=== PATIENT | female | born 1945 | race Caucasian/White ===

== ENCOUNTER → 2023-06-06 07:48 | Outpatient (REF) | payer MEDICARE, OTHER, SELFPAY ==
[2023-06-06 09:14] LABS: % Basophils 1.5 % (0-2); % Immature Granulocytes 0.2 % (0-0.5); % Lymphocytes 19.6 % (20.5-51.1); % Monocytes 7.8 % (1.7-9.3); % Neutrophils 68.9 % (42.2-75.2); Absolute Basophils 0.1 10^3/uL (0-0.2); Absolute Eosinophils 0.1 10^3/uL (0-0.7); Absolute Lymphocytes 0.9 10^3/uL (1.2-3.4); Absolute Monocytes 0.4 10^3/uL (0.1-0.6); Absolute Neutrophils 3.2 10^3/uL (1.4-6.5); Hematocrit 42.9 % (37.0-47.0); Hemoglobin 14.4 g/dL (12.0-16.0); Mean Corp Hgb Conc. 33.6 g/dL (33.0-37.0); Mean Corpuscular Hgb 31.2 pg (27.0-31.0); Mean Corpuscular Volume 93.1 fL (81.0-99.0); Mean Platelet Volume 10.4 fL (7.4-10.4); Nucleated Red Blood Cells % 0 %; Platelet Count 327 10^3/uL (130-400); Red Blood Cell Count 4.61 10^6/uL (4.20-5.40); Red Cell Dist. Width 12.6 % (11.5-14.5); White Blood Cell Count 4.6 10^3/uL (4.8-10.8)
[2023-06-06 09:43] LABS: ALT (SGPT) 20 U/L (0-35); AST (SGOT) 31 U/L (14-36); Albumin 4.5 g/dl (3.5-5.0); Alkaline Phosphatase 69 U/L (38-126); Blood Urea Nitrogen 24 mg/dl (7-17); Calcium 9.9 mg/dl (8.4-10.2); Carbon Dioxide 33 mmol/L (22-30); Chloride 97 mmol/L (98-107); Glucose 79 mg/dl (70-99); HDL Cholesterol 93 mg/dl; LDL Cholesterol, Calculated 72 mg/dl; Phosphorus 3.9 mg/dl (2.5-4.5); Sodium 138 mmol/L (135-145); Total Bilirubin 0.5 mg/dl (0.2-1.3); Total Cholesterol 182 mg/dl (50-199); Triglyceride 88 mg/dl (10-149); Very Low Density Lipoprotein 17 mg/dl (0-30); eGFR > 60.00
== END ==
LOC: REG 07:48
PROVIDERS: ATTENDING PHYSICIAN Family Medicine
DX: I10 Essential (primary) hypertension (principal); R74.01 Elevation of levels of liver transaminase levels; I70.0 Atherosclerosis of aorta; K59.09 Other constipation
CPT/HCPCS: 36415; 80053; 80061; 82248; 84100; 85025

== ENCOUNTER → 2023-06-27 13:19 | Outpatient (REF) | payer MEDICARE, OTHER, SELFPAY | LOC: HWRAD 13:19 | PROVIDERS: ATTENDING PHYSICIAN Family Medicine; REFERRING PHYSICIAN Internal Medicine Rheumatology | DX: M85.80 Other specified disorders of bone density and structure, unspecified site (principal); Z12.31 Encounter for screening mammogram for malignant neoplasm of breast; M81.0 Age-related osteoporosis without current pathological fracture | CPT/HCPCS: 77063; 77067; 77080 ==

== ENCOUNTER → 2023-08-12 16:07 | Outpatient (REF) | payer MEDICARE, OTHER, SELFPAY | LOC: PAVMRI 16:07 | PROVIDERS: ATTENDING PHYSICIAN Internal Medicine Rheumatology; FAMILY PHYSICIAN Family Medicine | DX: M25.511 Pain in right shoulder (principal) | CPT/HCPCS: 73221 ==

== ENCOUNTER → 2023-10-07 10:55 | Outpatient (REF) | payer MEDICARE, OTHER, SELFPAY ==
[2023-10-07 12:16] LABS: % Eosinophils 1.4 % (0-6); % Immature Granulocytes 0.2 % (0-0.5); % Lymphocytes 24.6 % (20.5-51.1); % Monocytes 8.4 % (1.7-9.3); % Neutrophils 64.4 % (42.2-75.2); Absolute Basophils 0.1 10^3/uL (0-0.2); Absolute Eosinophils 0.1 10^3/uL (0-0.7); Absolute Lymphocytes 1.2 10^3/uL (1.2-3.4); Absolute Monocytes 0.4 10^3/uL (0.1-0.6); Absolute Neutrophils 3.2 10^3/uL (1.4-6.5); Hematocrit 40.6 % (37.0-47.0); Hemoglobin 13.9 g/dL (12.0-16.0); Mean Corp Hgb Conc. 34.2 g/dL (33.0-37.0); Mean Corpuscular Hgb 30.8 pg (27.0-31.0); Mean Corpuscular Volume 89.8 fL (81.0-99.0); Mean Platelet Volume 10.2 fL (7.4-10.4); Nucleated Red Blood Cells % 0 %; Platelet Count 360 10^3/uL (130-400); Red Blood Cell Count 4.52 10^6/uL (4.20-5.40); Red Cell Dist. Width 12.5 % (11.5-14.5); White Blood Cell Count 4.9 10^3/uL (4.8-10.8)
[2023-10-07 12:48] LABS: ALT (SGPT) 19 U/L (0-35); AST (SGOT) 33 U/L (14-36); Albumin 4.4 g/dl (3.5-5.0); Alkaline Phosphatase 75 U/L (38-126); Blood Urea Nitrogen 27 mg/dl (7-17); Carbon Dioxide 32 mmol/L (22-30); Chloride 95 mmol/L (98-107); Glucose 79 mg/dl (70-99); Potassium 4.6 mmol/L (3.5-5.1); Sodium 133 mmol/L (135-145); Total Bilirubin 0.5 mg/dl (0.2-1.3); Total Protein 6.7 g/dl (6.3-8.2); eGFR > 60.00
[2023-10-07 12:49] LABS: C-Reactive Protein < 5.00 mg/L (0.0-10.00)
[2023-10-07 13:09] LABS: Erythrocyte Sed Rate 7 mm/hour (0-20)
== END ==
LOC: REG 10:55
PROVIDERS: ATTENDING PHYSICIAN Internal Medicine Rheumatology; FAMILY PHYSICIAN Family Medicine
DX: M15.4 Erosive (osteo)arthritis (principal); M25.511 Pain in right shoulder; M81.0 Age-related osteoporosis without current pathological fracture; R26.89 Other abnormalities of gait and mobility; Z51.81 Encounter for therapeutic drug level monitoring
CPT/HCPCS: 36415; 80053; 85025; 85652; 86140

== ENCOUNTER → 2023-11-08 07:37 | Outpatient (REF) | payer MEDICARE, OTHER, SELFPAY ==
[2023-11-08 08:58] LABS: ALT (SGPT) 18 U/L (0-35); AST (SGOT) 30 U/L (14-36); HDL Cholesterol 84 mg/dl; LDL Cholesterol, Calculated 58 mg/dl; Total Cholesterol 154 mg/dl (50-199); Triglyceride 61 mg/dl (10-149); Very Low Density Lipoprotein 12 mg/dl (0-30)
== END ==
LOC: REG 07:37
PROVIDERS: ATTENDING PHYSICIAN Nurse Practitioner; FAMILY PHYSICIAN Family Medicine
DX: I10 Essential (primary) hypertension (principal); I70.0 Atherosclerosis of aorta; E78.00 Pure hypercholesterolemia, unspecified; I48.0 Paroxysmal atrial fibrillation
CPT/HCPCS: 36415; 80061; 84450; 84460

== ENCOUNTER 2024-01-09 06:13 | Day surgery (SDC) | payer MEDICARE, OTHER, SELFPAY ==
[2024-01-03 10:00] VITALS: BMI 20.4
[2024-01-03 10:32] LABS: Hematocrit 40.8 % (37.0-47.0); Hemoglobin 13.8 g/dL (12.0-16.0); Mean Corp Hgb Conc. 33.8 g/dL (33.0-37.0); Mean Corpuscular Hgb 31.2 pg (27.0-31.0); Mean Corpuscular Volume 92.1 fL (81.0-99.0); Mean Platelet Volume 10.4 fL (7.4-10.4); Platelet Count 313 10^3/uL (130-400); Red Blood Cell Count 4.43 10^6/uL (4.20-5.40); Red Cell Dist. Width 12.5 % (11.5-14.5); White Blood Cell Count 5.1 10^3/uL (4.8-10.8)
[2024-01-03 11:10] LABS: ALT (SGPT) 22 U/L (0-35); AST (SGOT) 32 U/L (14-36); Albumin 4.4 g/dl (3.5-5.0); Alkaline Phosphatase 57 U/L (38-126); Blood Urea Nitrogen 23 mg/dl (7-17); Calcium 9.6 mg/dl (8.4-10.2); Carbon Dioxide 27 mmol/L (22-30); Chloride 98 mmol/L (98-107); Estimated Creatinine Clearance 49 ml/min; Glucose 83 mg/dl (70-99); Potassium 3.7 mmol/L (3.5-5.1); Sodium 138 mmol/L (135-145); Total Bilirubin 0.4 mg/dl (0.2-1.3); Total Protein 6.8 g/dl (6.3-8.2); eGFR > 60.00
[2024-01-03 11:52] LABS: Glycohemoglobin (HgbA1c) 5.2 % (4.0-5.6)
[2024-01-09] VITALS (27 sets, daily range): BP systolic 82–142; BP diastolic 44–81; BMI 21.1
[2024-01-09] MEDS: CELEBREX 200 MG PO (06:47)
[2024-01-09] MEDS: TYLENOL 1000 MG PO (06:47)
[2024-01-09] MEDS: NORMOSOL-R/PLASMALYTE-A 1000 IV (06:51)
[2024-01-09] MEDS: ZOFRAN 4 MG IV (10:32)
[2024-01-09] MEDS: COMPAZINE 5 MG IV (11:19)
--- NOTE | 2024-01-09 13:21 | CON.CAR ---
Addendum entered and electronically signed by Hair Shearer MD (Ellie) 01/09/24 14:11:
I saw and examined the patient.
The DENIAL MANAGEMENT REPRESENTATIVE's note was reviewed and I agree with the note.
Comment: 78 yo female with HTN, PAF (in the setting of sepsis d/t perforated viscus 10/2020, was on Eliquis but no recurrence so Eliquis stopped), HLD, and depression, who presents for elective left shoulder reverse total replacement surgery by
Tr[facility] today. After her operation, she was feeling nauseous and was given 5 mg of Compazine. She was then sleeping when she had a 7 beat run of nonsustained VT on the monitor. She was asymptomatic at that time but was awoken by the telemetry
alarm. She is otherwise feeling like her normal self. No chest pain, shortness of breath, palpitations, lightheadedness, dizziness, syncope, or presyncope. Prior to her admission for surgery she had not had any recent changes in cardiovascular
symptoms. Exam shows a well-appearing woman with blood pressure in the 90s over 40s, heart rate 70, satting 96% on room air. Cardiovascular exam reveals regular rate and rhythm, no murmurs rubs or gallops, no lower extremity edema, lungs clear to
auscultation bilaterally. Labs notable for potassium 3.5 and magnesium 2.1, creatinine at baseline of 0.5. Twelve-lead ECG after episode of nonsustained VT shows normal sinus rhythm with left anterior fascicular block and nonspecific ST-T changes.
Last echocardiogram in 2020 revealed normal ejection fraction and no significant valvular disease. Nuclear stress test in July 2022 was negative for ischemia.
In summary, this is a 78-year-old woman with past medical history of hypertension and paroxysmal A-fib who presents for shoulder surgery and had a 7 beat run of nonsustained asymptomatic VT postoperatively. We checked a BMP and magnesium which
revealed a K of 3.5 and magnesium of 2.1. We will also update an echocardiogram. If echocardiogram is unchanged, she is okay for discharge and we will set her up for a 2-week Zio patch as an outpatient. I did raise the idea of switching her
amlodipine to carvedilol to get a beta-kristie on board but she would rather do the Zio patch first to get a sense of her ectopy burden. We will arrange follow-up in our office.
Original Note:
Consultation
Consultation Request
Date/Time Consultation Requested: 01/09/24 12p
Date/Time Consultation Performed: 01/09/24 12:15p
Requesting Provider: Dr. Morel
Performing Provider: VICTORIANO Clay for Dr. Shearer
Reason for Consultation: NSVT
Medical History
-
Chief Complaint: elective left shoulder reverse total replacement surgery
History of Present Illness:
Mrs. 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
by Dr. Agosto today. Post-op she was feeling nauseous, treated with IV Compazine, then 10 minutes later was noted to have 7 beat run of NSVT on tele. She was asymptomatic with stable BP. No recurrence since and currently denies any cardiac
complaints.
Past Medical History
Past Medical History: Other (as above)
Social History
Tobacco: Non-Smoker
Living: With Family
Family History
Family History: Reviewed & Not Pertinent
Allergies / Home Medications
Allergy/AdvReac Type Severity Reaction Status Date / Time
No Known Allergies Allergy Verified 01/09/24 06:27
�Medication �Instructions �Recorded �Confirmed �Type
bupropion HCl 300 mg 24 hr tablet, 150 mg PO DAILY Depression 10/24/20 01/09/24 History
extended release
calcium carbonate (Oyster Shell 500 mg PO DAILY Supplement 10/24/20 01/09/24 History
Calcium 500)
cholecalciferol (vitamin D3) 25 1,000 units PO DAILY Supplement 10/24/20 01/09/24 History
mcg (1,000 unit) tablet
conjugated estrogens 0.45 mg 0.45 mg PO DAILY Hormonal agent 10/24/20 01/09/24 History
tablet (Premarin)
hydroxychloroquine 200 mg tablet 200 mg PO DAILY osteoarthritis 10/24/20 01/09/24 History
modafinil 200 mg tablet 200 mg PO DAILY Daytime somnolence 10/24/20 01/09/24 History
multivitamin with folic acid 400 1 tab PO DAILY Supplement 10/24/20 01/09/24 History
mcg tablet (Tab-A-Dilia)
melatonin 3 mg tablet 3 mg PO HSPRN PRN insomnia 02/10/21 01/09/24 History
coenzyme Q10 100 mg capsule 100 mg PO DAILY 01/03/24 01/09/24 History
(CoQ-10)
escitalopram oxalate 20 mg tablet 20 mg PO DAILY 01/03/24 01/09/24 History
(Lexapro)
leflunomide 10 mg tablet 10 mg PO DAILY 01/03/24 01/09/24 History
rosuvastatin 10 mg tablet 10 mg PO DAILY 01/03/24 01/09/24 History
mupirocin 2 % topical ointment 1 applic intranasal BID #1 tube 01/04/24 Rx
acetaminophen 500 mg tablet 1,000 mg (2 x 500 mg) PO Q6H #60 01/09/24 01/09/24 Rx
(Tylenol Extra Strength) tabs
amlodipine 10 mg tablet 10 mg PO DAILY #1 tab 01/09/24 01/09/24 Rx
aspirin 325 mg tablet 325 mg PO DAILY #30 tabs 01/09/24 Rx
celecoxib 200 mg capsule 200 mg PO DAILY Pain #0 caps 01/09/24 01/09/24 Rx
docusate sodium 100 mg capsule 100 mg PO BID #30 caps 01/09/24 Rx
(Colace)
hydrochlorothiazide 25 mg tablet 12.5 mg (1/2 x 25 mg) PO DAILY 01/09/24 01/09/24 Rx
Fluid retention/Swelling #1 tab
lorazepam 0.5 mg tablet (Ativan) 0.5 mg PO HS PRN sleep 01/09/24 01/09/24 History
ondansetron HCl 4 mg tablet 4 mg PO Q6H PRN nausea and 01/09/24 Rx
vomiting #30 tabs
oxycodone 5 mg tablet 5 - 10 mg (1 - 2 x 5 mg) PO Q6H 01/09/24 Rx
PRN moderate-severe pain #30 tabs
sennosides 8.6 mg tablet (senna) 17.2 mg (2 x 8.6 mg) PO BID #30 01/09/24 Rx
tabs
Review of Systems
-
History Source: Patient
All other systems: Negative unless noted
Physical Exam
Vital Signs
Temp Pulse Resp BP Pulse Ox
97.6 F 65 14 91/49 95
01/09/24 10:00 01/09/24 12:45 01/09/24 12:45 01/09/24 12:45 01/09/24 13:00
Lab Results
01/03/24 09:37
Physical Exam
General: Well Developed, Well Nourished and No Apparent Distress
HEENT: Normocephalic, Anicteric and Moist Mucous Membranes
Respiratory: Clear
Cardiac: S1/S2 and Regular Rhythm
Breast: Deferred by me
GI: Soft, Non Tender, Non Distended and Normal Bowel Sounds
Rectal: Deferred by Provider
Musculoskeletal: No Cyanosis, No Edema and Other (left shoulder sling intact)
Skin: Warm and Dry
Neuro: AO x 3
Psych: Calm
Impression / Plan
-
NSVT - 7 beats on tele post-op left shoulder surgery today.
- asymptomatic.
- no recurrence.
- vitals otherwise stable, BP mild low/normal (she took her amlodipine 10mg this am at home).
- check BMP, mag level.
- check echo.
- will order outpatient 2 week air sampling and monitoring.
HTN - stable on Amlodipine 10mg daily.
- she took it at home prior to arrival.
- consider switch Amlodipine to BB, she is not interested.
Left shoulder - post-op replacement.
- per Dr. Agosto.
HLD - stable on Crestor, continue.
PAF - occurred in 10/2020 setting of sepsis from perforated viscus.
- was on Eliquis for OAC.
- no recurrence, so Eliquis stopped.
Data Reviewed
-
EKG: Tracing Personally Visualized and interpreted
Medical Tests (Nuc Med, Echo etc): Report Reviewed by me (echo 10/2020 normal LVEF, mild MR. nuclear stress Lexiscan 07/2022: normal perfusion, EF 73%)
Labs: Labs Reviewed by me
Old Records: Reviewed
[2024-01-09 14:00] LABS: Blood Urea Nitrogen 21 mg/dl (7-17); Calcium 8.3 mg/dl (8.4-10.2); Carbon Dioxide 25 mmol/L (22-30); Chloride 104 mmol/L (98-107); Estimated Creatinine Clearance 66 ml/min; Glucose 123 mg/dl (70-99); Magnesium 2.1 mg/dl (1.6-2.3); Potassium 3.5 mmol/L (3.5-5.1); Sodium 140 mmol/L (135-145); eGFR > 60.00
[2024-01-09] MEDS: ANCEF 5 IV (16:29)
[2024-01-09] MEDS: TYLENOL 650 MG PO (16:32)
== END 2024-01-09 17:05 | disposition home or self-care (01) ==
LOC: SDS 06:13
PROVIDERS: Nurse Practitioner; ATTENDING PHYSICIAN Orthopaedic Surgery Hand Surgery; CONSULT PHYSICIAN Student in an Organized Health Care Education/Training Program; FAMILY PHYSICIAN Family Medicine; OTHER PHYSICIAN Internal Medicine Cardiovascular Disease; OTHER PHYSICIAN Internal Medicine Rheumatology
DX: M19.012 Primary osteoarthritis, left shoulder (principal)
CPT/HCPCS: 23472; 36415; 73020; 80048; 80053; 83036; 83735; 85027; 86850; 86900; 86901; 87070; 93005; 93306; C1713; C1776

== ENCOUNTER → 2024-03-15 06:32 | Day surgery (SDC) | payer MEDICARE, OTHER, SELFPAY ==
[2024-03-13 13:04] VITALS: BMI 20.8
[2024-03-13 13:21] LABS: Hematocrit 41.1 % (37.0-47.0); Hemoglobin 13.6 g/dL (12.0-16.0); Mean Corp Hgb Conc. 33.1 g/dL (33.0-37.0); Mean Corpuscular Volume 93.6 fL (81.0-99.0); Mean Platelet Volume 9.6 fL (7.4-10.4); Platelet Count 312 10^3/uL (130-400); Red Blood Cell Count 4.39 10^6/uL (4.20-5.40); Red Cell Dist. Width 12.3 % (11.5-14.5); White Blood Cell Count 3.8 10^3/uL (4.8-10.8)
[2024-03-13 13:47] LABS: ALT (SGPT) 18 U/L (0-35); AST (SGOT) 29 U/L (14-36); Albumin 4.3 g/dl (3.5-5.0); Alkaline Phosphatase 68 U/L (38-126); Blood Urea Nitrogen 16 mg/dl (7-17); Calcium 9.6 mg/dl (8.4-10.2); Carbon Dioxide 30 mmol/L (22-30); Chloride 98 mmol/L (98-107); Estimated Creatinine Clearance 69 ml/min; Glucose 100 mg/dl (70-99); Potassium 3.7 mmol/L (3.5-5.1); Sodium 136 mmol/L (135-145); Total Bilirubin 0.2 mg/dl (0.2-1.3); Total Protein 6.5 g/dl (6.3-8.2); eGFR > 60.00
[2024-03-13 14:56] VITALS: BMI 20.8
[2024-03-15] VITALS (12 sets, daily range): BP systolic 110–158; BP diastolic 54–87
[2024-03-15] MEDS: TYLENOL 1000 MG PO (15:15)
[2024-03-15] MEDS: ZOFRAN 4 MG IV (20:25)
[2024-03-15] MEDS: COMPAZINE 5 MG IV (20:38)
[2024-03-15] MEDS: ANCEF 5 IV (21:45)
== END | disposition home or self-care (01) ==
LOC: SDS 06:32
PROVIDERS: ATTENDING PHYSICIAN Orthopaedic Surgery Hand Surgery; FAMILY PHYSICIAN Family Medicine; OTHER PHYSICIAN Physician Assistant Medical
DX: T84.039A Mechanical loosening of unspecified internal prosthetic joint, initial encounter (principal); Y83.1 Surgical operation with implant of artificial internal device as the cause of abnormal reaction of the patient, or of later complication, without mention of misadventure at the time of the procedure
CPT/HCPCS: 23473; C1776; 36415; 73020; 80053; 85027; 86850; 86900; 86901; 87070; 93005

== ENCOUNTER → 2024-04-06 14:31 | Outpatient (REF) | payer MEDICARE, OTHER, SELFPAY ==
[2024-04-06 15:35] LABS: % Eosinophils 5.7 % (0-6); % Immature Granulocytes 0.3 % (0-0.5); % Lymphocytes 27.9 % (20.5-51.1); % Monocytes 9.4 % (1.7-9.3); % Neutrophils 55.7 % (42.2-75.2); Absolute Eosinophils 0.2 10^3/uL (0-0.7); Absolute Lymphocytes 1.1 10^3/uL (1.2-3.4); Absolute Monocytes 0.4 10^3/uL (0.1-0.6); Absolute Neutrophils 2.1 10^3/uL (1.4-6.5); Hematocrit 40.9 % (37.0-47.0); Hemoglobin 13.5 g/dL (12.0-16.0); Mean Corpuscular Hgb 31.2 pg (27.0-31.0); Mean Corpuscular Volume 94.5 fL (81.0-99.0); Mean Platelet Volume 9.6 fL (7.4-10.4); Nucleated Red Blood Cells % 0 %; Platelet Count 281 10^3/uL (130-400); Red Blood Cell Count 4.33 10^6/uL (4.20-5.40); Red Cell Dist. Width 12.7 % (11.5-14.5); White Blood Cell Count 3.8 10^3/uL (4.8-10.8)
[2024-04-06 15:49] LABS: Erythrocyte Sed Rate 9 mm/hour (0-20)
[2024-04-06 15:57] LABS: ALT (SGPT) 16 U/L (0-35); AST (SGOT) 28 U/L (14-36); Albumin 4.4 g/dl (3.5-5.0); Alkaline Phosphatase 79 U/L (38-126); Blood Urea Nitrogen 17 mg/dl (7-17); Calcium 9.7 mg/dl (8.4-10.2); Carbon Dioxide 35 mmol/L (22-30); Chloride 95 mmol/L (98-107); Glucose 82 mg/dl (70-99); Potassium 3.8 mmol/L (3.5-5.1); Sodium 136 mmol/L (135-145); Total Bilirubin 0.2 mg/dl (0.2-1.3); Total Protein 6.9 g/dl (6.3-8.2); eGFR > 60.00
== END ==
LOC: REG 14:31
PROVIDERS: ATTENDING PHYSICIAN Internal Medicine Rheumatology; FAMILY PHYSICIAN Family Medicine
DX: M15.4 Erosive (osteo)arthritis (principal); M19.011 Primary osteoarthritis, right shoulder; M25.511 Pain in right shoulder; M81.0 Age-related osteoporosis without current pathological fracture; R26.89 Other abnormalities of gait and mobility; Z51.81 Encounter for therapeutic drug level monitoring
CPT/HCPCS: 36415; 80053; 85025; 85652; 86140

== ENCOUNTER → 2024-07-06 11:12 | Outpatient (REF) | payer MEDICARE, OTHER, SELFPAY | LOC: HWWDC 11:12 | PROVIDERS: ATTENDING PHYSICIAN Family Medicine | DX: Z12.31 Encounter for screening mammogram for malignant neoplasm of breast (principal) | CPT/HCPCS: 77063; 77067 ==

== ENCOUNTER → 2024-08-23 13:11 | Outpatient (REF) | payer MEDICARE, OTHER, SELFPAY ==
[2024-08-23 14:17] LABS: % Basophils 1.1 % (0-2); % Eosinophils 1.7 % (0-6); % Immature Granulocytes 0.3 % (0-0.5); % Lymphocytes 25.4 % (20.5-51.1); % Monocytes 9.4 % (1.7-9.3); % Neutrophils 62.1 % (42.2-75.2); Absolute Eosinophils 0.1 10^3/uL (0-0.7); Absolute Lymphocytes 0.9 10^3/uL (1.2-3.4); Absolute Monocytes 0.3 10^3/uL (0.1-0.6); Absolute Neutrophils 2.3 10^3/uL (1.4-6.5); Hematocrit 41.7 % (37.0-47.0); Hemoglobin 13.8 g/dL (12.0-16.0); Mean Corp Hgb Conc. 33.1 g/dL (33.0-37.0); Mean Corpuscular Hgb 31.3 pg (27.0-31.0); Mean Corpuscular Volume 94.6 fL (81.0-99.0); Mean Platelet Volume 10.4 fL (7.4-10.4); Nucleated Red Blood Cells % 0 %; Platelet Count 333 10^3/uL (130-400); Red Blood Cell Count 4.41 10^6/uL (4.20-5.40); Red Cell Dist. Width 12.2 % (11.5-14.5); White Blood Cell Count 3.6 10^3/uL (4.8-10.8)
[2024-08-23 15:05] LABS: ALT (SGPT) 18 U/L (0-35); AST (SGOT) 30 U/L (14-36); Albumin 4.3 g/dl (3.5-5.0); Alkaline Phosphatase 58 U/L (38-126); Blood Urea Nitrogen 21 mg/dl (7-17); Calcium 9.6 mg/dl (8.4-10.2); Carbon Dioxide 31 mmol/L (22-30); Chloride 102 mmol/L (98-107); Glucose 105 mg/dl (70-99); Potassium 3.9 mmol/L (3.5-5.1); Sodium 137 mmol/L (135-145); Total Bilirubin 0.4 mg/dl (0.2-1.3); Total Protein 6.7 g/dl (6.3-8.2); eGFR > 60.00
[2024-08-23 15:09] LABS: Erythrocyte Sed Rate 9 mm/hour (0-20)
== END ==
LOC: REG 13:11
PROVIDERS: ATTENDING PHYSICIAN Internal Medicine Rheumatology; FAMILY PHYSICIAN Family Medicine
DX: M15.4 Erosive (osteo)arthritis (principal); M19.011 Primary osteoarthritis, right shoulder; M25.511 Pain in right shoulder; M81.0 Age-related osteoporosis without current pathological fracture; R26.89 Other abnormalities of gait and mobility; Z51.81 Encounter for therapeutic drug level monitoring
CPT/HCPCS: 36415; 80053; 85025; 85652; 86140

== ENCOUNTER → 2024-09-03 08:23 | Outpatient (REF) | payer MEDICARE, OTHER, SELFPAY ==
[2024-09-03 10:44] LABS: Free T4 1.11 ng/dl (0.78-2.19)
[2024-09-03 11:10] LABS: HDL Cholesterol 97 mg/dl; LDL Cholesterol, Calculated 69 mg/dl; Total Cholesterol 183 mg/dl (50-199); Triglyceride 88 mg/dl (10-149); Very Low Density Lipoprotein 17 mg/dl (0-30)
== END ==
LOC: REG 08:23
PROVIDERS: ATTENDING PHYSICIAN Internal Medicine Cardiovascular Disease; OTHER PHYSICIAN Family Medicine
DX: I10 Essential (primary) hypertension (principal); I70.0 Atherosclerosis of aorta; R53.83 Other fatigue
CPT/HCPCS: 36415; 80061; 84439; 84443

== ENCOUNTER → 2025-02-21 11:43 | Outpatient (REF) | payer MEDICARE, OTHER, SELFPAY ==
[2025-02-21 12:43] LABS: Hematocrit 42.3 % (37.0-47.0); Hemoglobin 14.4 g/dL (12.0-16.0); Mean Corp Hgb Conc. 34.0 g/dL (33.0-37.0); Mean Corpuscular Volume 89.4 fL (81.0-99.0); Nucleated Red Blood Cells % 0 %; Platelet Count 305 10^3/uL (130-400); Red Cell Dist. Width 12.7 % (11.5-14.5)
[2025-02-21 13:15] LABS: C-Reactive Protein < 5.00 mg/L (0.0-10.00)
[2025-02-21 14:01] LABS: ALT (SGPT) 25 U/L (0-35); AST (SGOT) 34 U/L (14-36); Albumin 4.5 g/dl (3.5-5.0); Alkaline Phosphatase 61 U/L (38-126); Blood Urea Nitrogen 17 mg/dl (7-17); Calcium 9.8 mg/dl (8.4-10.2); Carbon Dioxide 29 mmol/L (22-30); Chloride 98 mmol/L (98-107); Glucose 140 mg/dl (70-99); Potassium 3.8 mmol/L (3.5-5.1); Sodium 133 mmol/L (135-145); Total Protein 7.0 g/dl (6.3-8.2); eGFR > 60.00
== END ==
LOC: REG 11:43
PROVIDERS: ATTENDING PHYSICIAN Internal Medicine Rheumatology; FAMILY PHYSICIAN Family Medicine
DX: M15.4 Erosive (osteo)arthritis (principal); M19.011 Primary osteoarthritis, right shoulder; M81.0 Age-related osteoporosis without current pathological fracture; R26.89 Other abnormalities of gait and mobility; Z51.81 Encounter for therapeutic drug level monitoring
CPT/HCPCS: 36415; 80053; 85025; 85652; 86140

== ENCOUNTER → 2025-03-11 07:34 | Outpatient (REF) | payer MEDICARE, OTHER, SELFPAY ==
[2025-03-11 09:49] LABS: HDL Cholesterol 102 mg/dl; LDL Cholesterol, Calculated 45 mg/dl; Very Low Density Lipoprotein 14 mg/dl (0-30)
== END ==
LOC: REG 07:34
PROVIDERS: ATTENDING PHYSICIAN Internal Medicine Cardiovascular Disease
DX: I10 Essential (primary) hypertension (principal)
CPT/HCPCS: 36415; 80061